=== PATIENT | female | born 1945 | race Caucasian/White ===

== ENCOUNTER → 2016-11-13 | Outpatient (CLI) | payer OTHER ==
[~2016-11-13] MED LIST: AMLO-114 PO; BIOT1CAP8 PO; BIOT1TAB5 PO; CHOL200010 PO; HYDR25TA4 PO; LISI-725 PO; NAPR1CAP12 PO; SIMV20TA2 PO; VITAMIN D3 PO
--- NOTE | 2016-11-13 13:20 | DIAGNOSTIC IMAGING REPORT ---
TWO VIEW CHEST CLINICAL HISTORY: Atypical chest pain. FINDINGS: PA and lateral chest radiographs are compared to chest x-ray and chest CT dated 01/01/2014. The top normal for projection and there is atherosclerotic calcification of the thoracic aorta. The pulmonary vasculature is noncongested. Chronic interstitial thickening is similar to previous. The lungs and pleural spaces are clear. There is no pneumothorax. The skeletal structures are osteopenic. The bony thorax appears intact. IMPRESSION: No active disease in the chest. Electronically signed by: Darrius Cortez M.D. 11/13/2016 1:18 PM Dictated Date/Time: 11/13/2016 1:17 PM
== END | disposition home or self-care (01) ==
LOC: C.RAD1850 13:03
PROVIDERS: ATTEND Internal Medicine
DX: R07.89 Other chest pain (principal)

== ENCOUNTER → 2016-11-13 | Outpatient (CLI) | payer OTHER ==
[2016-11-13 14:47] LABS: BASO % 0.8 %; BASO ABS # 0.05 K/uL (0-0.2); COMPLETE YES; EOS % 2.3 %; HEMATOCRIT 39.8 % (37-47); IG% 0.2 %; LYMPH ABS # 1.63 K/uL (1.2-3.4); MEAN CELL VOLUME 91.1 fL (80-100); MEAN CORPUSCULAR HEMOGLOBIN 31.4 pg (25-34); MEAN CORPUSCULAR HGB CONC 34.4 g/dl (32-36); MONO % 8.6 %; NEUT % 63.1 %; PLATELET COUNT 196 K/uL (130-400); RED BLOOD COUNT 4.37 M/uL (4.2-5.4); WHITE BLOOD COUNT 6.52 K/uL (4.8-10.8)
[2016-11-13 15:07] LABS: ALT/SGPT 37 U/L (12-78); AST/SGOT 21 U/L (15-37); BLOOD UREA NITROGEN 19 mg/dl (7-18); BUN/CREATININE RATIO 15.5 (10-20); CALCIUM 9.3 mg/dl (8.5-10.1); CARBON DIOXIDE 31 mmol/L (21-32); CHLORIDE 103 mmol/L (98-107); GLUCOSE 89 mg/dl (70-99); POTASSIUM 3.9 mmol/L (3.5-5.1); SODIUM 140 mmol/L (136-145)
[2016-11-13 15:29] LABS: ALB/GLOB RATIO 1.4 (0.9-2); ALKALINE PHOSPHATASE 55 U/L (45-117); C-REACTIVE PROTEIN < 0.29 mg/dl (0-0.29); CHOLESTEROL 168 mg/dl (0-200); CHOLESTEROL/HDL RATIO 2.4; HDL CHOLESTEROL 69 mg/dl; LDL CHOLESTEROL CALCULATED 69 mg/dl; TRIGLYCERIDES 150 mg/dl (0-150); VERY LOW DENSITY LIPOPROT CALC 30 mg/dl
== END | disposition home or self-care (01) ==
LOC: C.LAB1850 12:46
PROVIDERS: ATTEND Internal Medicine
DX: E53.8 Deficiency of other specified B group vitamins (principal); E55.9 Vitamin D deficiency, unspecified; E78.5 Hyperlipidemia, unspecified; Z87.19 Personal history of other diseases of the digestive system; R53.83 Other fatigue; R07.89 Other chest pain

== ENCOUNTER → 2017-04-30 | Day surgery (SDC) | payer OTHER ==
[2017-04-16 15:11] VITALS: BMI 26.0
[~2017-04-30] VITALS: Ht 154.9 cm; Wt 63.6 kg
[~2017-04-30] MED LIST changes: -BIOT1TAB5 PO; +LIDOCAINE HCL 2% 2 ML VIAL (20MG/ML) ONE; +PROPOFOL IV EMULSION 10 MG/ML 20 ML VIAL IV ONE; +SODIUM CHLORIDE 0.9% 500ML 500 ML IV ONE; -VITAMIN D3 PO
[2017-04-30 08:45] VITALS: Ht 154.9 cm; Wt 63.6 kg
[2017-04-30 08:46] VITALS: TEMP 36.6
--- NOTE | 2017-04-30 08:59 | Endo History and Physical ---
History & Physical Date of Service: Apr 30, 2017. Chief Complaint: SCREENING FOR COLON CANCER Referring Physician: DR SCHMIDT History of Present Illness 72 yo CF who presents for screening colonoscopy. Past Surgical History Hx Cardiac Surgery: No Hx Internal Defibrillator: No Hx Pacemaker: No Hx Abdominal Surgery: No Hx Post-Op Nausea and Vomiting: No Hx Cancer Surgery: No Hx Thoracic Surgery: No Hx Orthopedic: Yes (LEFT SHOULDER ARTHROSCOPY) Hx Urinary Tract Surgery: No Family History None Social History Smoking Status: Never Smoker Hx Substance Use: No Hx Alcohol Use: Yes (OCCASIONALLY) Allergies Coded Allergies: Hydrocodone (Verified Adverse Reaction, Mild, NAUSEA, 04/16/17) Current Medications Reported Home Medications Medications Dose Route/Sig Max Daily Dose Days Date Category Zocor (Simvastatin) 20 Mg Tab 1 Tab PO HS 90 04/16/17 Reported Biotin 1 Mg Cap 1 Cap PO QAM 04/16/17 Reported Vitamin D (Cholecalciferol) 2,000 Unit Cap 1 Cap PO QAM 04/16/17 Reported Aleve (Naproxen Sodium) 220 Mg Cap 220-440 Mg PO DAILY PRN 01/01/14 Reported Zestril (Lisinopril) 20 Mg Tab 20 Mg PO HS 01/01/14 Reported Hctz (Hydrochlorothiazide) 25 Mg Tab 25 Mg PO HS 01/01/14 Reported Norvasc (Amlodipine Besylate) 10 Mg Tab 10 Mg PO HS 01/01/14 Reported Vital Signs Weight (Kilograms): 63.64 Height (Feet): 5 Height (Inches): 1 Date Time Temp Pulse Resp B/P (MAP) Pulse Ox O2 Delivery O2 Flow Rate FiO2 04/30/17 08:46 36.6 63 18 165/80 (108) 97 Room Air Physical Exam General Appearance: WD/WN, no apparent distress Respiratory/Chest: Auscultation: breath sounds normal Cardiovascular: Heart Auscultation: RRR Abdomen: Bowel Sounds: normal Inspection & Palpation: soft, non-distended, no tenderness, guarding & rebound Assessment and Plan Assessment: 72 yo CF who presents for screening colonoscopy. Plan: Proceed with colonoscopy.
--- NOTE | 2017-04-30 09:51 | Discharge Instructions ---
Endoscopy Patient Instructions Date / Procedure(s) Performed Apr 30, 2017. Colonoscopy Allergy Information Coded Allergies: Hydrocodone (Verified Adverse Reaction, Mild, NAUSEA, 04/16/17) Discharge Date / Findings Apr 30, 2017. Diverticulosis Internal hemorrhoids Medication Instructions Stopped Medication(s): ALEVE PRN-LAST DOSE 04/27/17 OK to resume all medications today as prescribed Reported Home Medications Medications Dose Route/Sig Max Daily Dose Days Date Category Zocor (Simvastatin) 20 Mg Tab 1 Tab PO HS 90 04/16/17 Reported Biotin 1 Mg Cap 1 Cap PO QAM 04/16/17 Reported Vitamin D (Cholecalciferol) 2,000 Unit Cap 1 Cap PO QAM 04/16/17 Reported Aleve (Naproxen Sodium) 220 Mg Cap 220-440 Mg PO DAILY PRN 01/01/14 Reported Zestril (Lisinopril) 20 Mg Tab 20 Mg PO HS 01/01/14 Reported Hctz (Hydrochlorothiazide) 25 Mg Tab 25 Mg PO HS 01/01/14 Reported Norvasc (Amlodipine Besylate) 10 Mg Tab 10 Mg PO HS 01/01/14 Reported Provider Instructions Activity Restrictions - No exercising or heavy lifting for 24 hours. - Do not drink alcohol the day of the procedure. - Do not drive a car or operate machinery until the day after the procedure. - Do not make any important decisions or sign important papers in 24 hours after the procedure. Following Day: - Return to full activity which may include returning to work/school. Diet Start your diet with liquids and light foods (jello, soup, juice, toast). Then eat your usual diet if not nauseated. Treatment For Common After Affects For mild abdominal pain, bloating, or excessive gas: - Rest - Eat lightly - Lie on right side Follow-Up Information Follow-up with DR SCHMIDT as scheduled Anesthesia Information What You Should Know You have had a procedure that required some medicine to reduce anxiety and discomfort. This treatment is called moderate sedation. After receiving the treatment, you may be sleepy, but you will be able to breathe on your own. The effects of the treatment may last for several hours. Follow these instructions along with Activity/Diet recommendations noted above: * Do NOT do anything where dizziness or clumsiness would be dangerous. * Rest quietly at home today, then you can be up and about tomorrow. * Have a responsible person stay with you the rest of today. * You may have had an I.V. today. If so, you may take the dressing off later today. Recommendations Call your doctor if: * Trouble breathing * Continuous vomiting for more than 24 hours * Temperature above 101 degrees * Severe abdominal pain or bloating * Pain not relieved by pain medicine ordered * There is increased drainage or redness from any incision * A large amount of rectal bleeding greater than 2-3 tablespoons. (If you had a polyp/s removed or have hemorrhoids, a small amount of blood - from the rectum is to be expected.) * You have any unanswered questions or concerns. IN THE EVENT OF A SERIOUS EMERGENCY, GO TO THE NEAREST EMERGENCY ROOM Your discharge instructions were prepared by provider Yong Bucio. Patient Instructions Signature Page Vanessa Hazel Patient (or Guardian) Signature/Date: I have read and understand the instructions given to me by my caregivers. Caregiver/RN/Doctor Signature/Date: The above-named patient and/or guardian has received patient instructions on this date. + Original Patient Signature Page (only) stays with chart. Please make copy for patient.
--- NOTE | 2017-04-30 09:59 | GI REPORT ---
Procedure Date: 04/30/2017 9:20 AM Procedure: Colonoscopy Indications: Screening for colorectal malignant neoplasm Medicines: Monitored Anesthesia Care Complications: No immediate complications. Estimated Blood Loss: Estimated blood loss: none. Procedure: Pre-Anesthesia Assessment: - Prior to the procedure, a History and Physical was performed, and patient medications and allergies were reviewed. The patient's tolerance of previous anesthesia was also reviewed. The risks and benefits of the procedure and the sedation options and risks were discussed with the patient. All questions were answered, and informed consent was obtained. Prior Anticoagulants: The patient has taken no previous anticoagulant or antiplatelet agents. ASA Grade Assessment: II - A patient with mild systemic disease. After reviewing the risks and benefits, the patient was deemed in satisfactory condition to undergo the procedure. After I obtained informed consent, the scope was passed under direct vision. Throughout the procedure, the patient's blood pressure, pulse, and oxygen saturations were monitored continuously. The scope was introduced through the anus and advanced to the cecum, identified by appendiceal orifice and ileocecal valve. The colonoscopy was performed without difficulty. The patient tolerated the procedure well. The quality of the bowel preparation was good. The ileocecal valve, appendiceal orifice, and rectum were photographed. Findings: Multiple small-mouthed diverticula were found in the sigmoid colon. Non-bleeding internal hemorrhoids were found during retroflexion. The hemorrhoids were small. Impression: - Diverticulosis in the sigmoid colon. - Non-bleeding internal hemorrhoids. - No specimens collected. Recommendation: - Resume previous diet. - Continue present medications. - No repeat colonoscopy due to age and the absence of advanced adenomas. - Return to primary care physician as previously scheduled. Yong Bucio, DO 04/30/2017 9:58:38 AM This report has been signed electronically. Note Initiated On: 04/30/2017 9:20 AM I attest to the content of the Intraoperative Record and orders documented therein, exceptions below
[2017-04-30 10:20] VITALS: BP 140/81; PULSE 60; O2SAT 97
--- NOTE | 2017-04-30 10:23 | Anesthesiology Progress Note ---
Anesthesia Post Op Note Date & Time Apr 30, 2017 at 10:23 Vital Signs Pain Intensity: 0 Vital Signs Past 12 Hours Date Time Temp Pulse Resp B/P (MAP) Pulse Ox O2 Delivery O2 Flow Rate FiO2 04/30/17 10:20 60 16 140/81 (100) 97 Room Air 04/30/17 10:12 68 16 135/81 (99) 97 Room Air 04/30/17 10:01 61 16 113/60 (77) 98 Room Air 04/30/17 09:54 60 16 111/56 (74) 98 Room Air 04/30/17 08:46 36.6 63 18 165/80 (108) 97 Room Air Notes Mental Status: alert / awake / arousable, participated in evaluation Pt Amnestic to Procedure: Yes Nausea / Vomiting: adequately controlled Pain: adequately controlled Airway Patency, RR, SpO2: stable & adequate BP & HR: stable & adequate Hydration State: stable & adequate Anesthetic Complications: no major complications apparent
== END | disposition home or self-care (01) ==
LOC: C.GI 08:26
PROVIDERS: ATTEND Internal Medicine
DX: Z12.11 Encounter for screening for malignant neoplasm of colon (principal); I10 Essential (primary) hypertension; M19.90 Unspecified osteoarthritis, unspecified site; K64.8 Other hemorrhoids; K57.30 Diverticulosis of large intestine without perforation or abscess without bleeding